=== PATIENT | male | born 1955 | race Caucasian/White ===

== ENCOUNTER 2016-07-01 17:33 | Inpatient (IN) | payer OTHER ==
[~2016-07-01] VITALS: Ht 177.8 cm; Wt 73.9 kg
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
--- NOTE | 2016-07-01 17:44 | NUR ---
PA STUDENT AT BEDSIDE FOR EVAL
--- NOTE | 2016-07-01 18:00 | NUR ---
RECTAL TEMP 103.1. DEVENDRA Cadet AT BEDSIDE FOR EVAL
[2016-07-01 18:16] LABS: ABSOLUTE BASOPHIL COUNT 0 /CUMM (0.0-0.2); ABSOLUTE EOSINOPHIL COUNT 0 /CUMM (0.0-0.7); ABSOLUTE GRANULOCYTE CT 12.5 /CUMM (1.4-6.5); ABSOLUTE LYMPH COUNT 1.9 /CUMM (1.2-3.4); ABSOLUTE MONOCYTE COUNT 2.5 /CUMM (0.10-0.60); BASOPHIL % 0 % (0.0-2.0); EOSINOPHIL % 0.1 % (0-5); MEAN CORPUSCULAR HGB 32.2 PG (27.0-31.0); MEAN CORPUSCULAR HGB CONC 33.3 G/DL (33.0-37.0); MEAN CORPUSCULAR VOLUME 96.8 FL (80.0-94.0); MEAN PLATELET VOLUME 9.4 FL (7.4-10.4); PLATELET COUNT 116 /CUMM (130-400); RBC DISTRIBUTION WIDTH 16.8 % (11.5-14.5); RED BLOOD CELL CT 2.69 /CUMM (4.70-6.10); WHITE BLOOD CELL COUNT 16.9 /CUMM (4.8-10.8)
--- NOTE | 2016-07-01 18:20 | NUR ---
BLOOD CULTURES X2 DRAWN AND SENT. HOSPITAL IV ESTBALISHED. PT CONFUSED, MOVING EXTREMITIES. UNABLE TO REDIRECT
[2016-07-01 18:23] LABS: GRANULOCYTE % 74.1 % (42.2-75.2)
[2016-07-01 18:30] LABS: PT 18.5 SEC (9.4-12.5); PTT 33 SEC (25-37)
--- NOTE | 2016-07-01 18:30 | NUR ---
MODERATE AMOUNT OF FORMED BLACK TARRY STOOL OUTPUT
--- NOTE | 2016-07-01 18:40 | NUR ---
VARGAS INSERTED. PT VERY AGITATED. PULLING AT IVS AND VARGAS. BILATERAL SOFT WRIST RESTRAINTS APPLIED PER DEVENDRA JEAN'S ORDER
--- NOTE | 2016-07-01 19:47 | CT SCAN REPORT ---
EXAMINATION: CT HEAD WITHOUT CONTRAST CT CERVICAL SPINE WITHOUT CONTRAST CLINICAL INFORMATION: Fall. Rule out fracture. COMPARISON: Head CT from 03/31/2016. TECHNIQUE: Contiguous axial imaging was performed from the skullbase to vertex without intravenous administration of contrast. Multidetector helical imaging was performed through the cervical spine. DLP: 1035.17 mGy-cm. FINDINGS: HEAD: There is no evidence of acute intracranial hemorrhage or territorial infarction. No abnormal mass effect or midline shift is seen. Lutz to white matter differentiation is well preserved. No extra-axial fluid collections are identified. There is a small area of linear calcification in the subcortical white matter of the left frontal lobe with adjacent low density change, also visible prior imaging. This may be due to a small developmental venous anomaly. The ventricles are normal in size. Brain parenchymal attenuation is normal. The osseous structures and soft tissues are normal. The mastoid air cells and visualized portions of the paranasal sinuses are well aerated. 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 CERVICAL SPINE: No acute fracture or dislocation is identified in the cervical spine. Significant multilevel disc space narrowing is noted with endplate ossification and Schmorl's nodes. There is ankylosis of the C2-C3 facet joint on the right side. Low The atlantoaxial articulation is normally maintained. The paraspinal soft tissues are normal. The lung apices are clear. IMPRESSION: 1. No acute intracranial pathology. 2. No evidence of acute cervical spine traumatic injury. Extensive cervical spondylosis.
--- NOTE | 2016-07-01 20:00 | NUR ---
PT TO AND FROM CT SCAN WITH THIS RN. PT REMAINS CONFUSED ABOUT SITUATION
--- NOTE | 2016-07-01 20:40 | CT SCAN REPORT ---
EXAMINATION: CT CHEST WITHOUT CONTRAST CT ABDOMEN/PELVIS WITHOUT CONTRAST CLINICAL INFORMATION: Fall 5 days ago. Fevers and altered sensorium. Evaluate for infection, trauma. COMPARISON: No relevant prior studies are available for comparison. TECHNIQUE: Multidetector volumetric CT imaging of the chest was done. Axial MIP volume rendering provided. Sagittal and coronal reformatted images were obtained. DLP: 955 mGy-cm. CHEST: LUNGS: No focal consolidation. Bilateral dependent atelectatic changes. A 5 mm calcification within the right lower lobe on series 3 image 29, consistent with a calcified granuloma. No additional pulmonary nodule or mass. MEDIASTINUM: No cardiomegaly. No mediastinal or perihilar lymphadenopathy. PLEURA: There is no pleural effusion or pneumothorax. No pleural mass or thickening. AXILLA: No lymphadenopathy. OSSEOUS STRUCTURES: Mild degenerative changes within the thoracic spine. No fracture. ABDOMEN/PELVIS: Evaluation of the intra-abdominal viscera is limited without IV contrast. PERITONEAL CAVITY: There is mild perihepatic and intra-abdominal ascites which measures approximately 5 Hounsfield units and is consistent with simple fluid. There is no intraperitoneal free air. LIVER, GALLBLADDER, AND BILIARY TREE: There is expansion and diffuse hypodensity of the right hepatic lobe with areas of central calcification. This area measures approximately 13.4 x 11.1 x 10.8 cm (AP x ML x CC). Evaluation is limited without intravenous contrast. These findings could represent a primary hepatic lesion such as hepatocellular carcinoma. An infectious process could also be considered in the appropriate clinical setting. Follow-up dedicated liver imaging with contrast or liver MRI could be considered if there are no contraindications. The gallbladder is poorly evaluated secondary to ascites and the lack of intravenous contrast, although the wall appears slightly thickened. No radiopaque stones are identified. Ultrasound could be considered if there is clinical concern for cholecystitis. There is no intrahepatic biliary ductal dilatation. PANCREAS: Poorly evaluated but grossly unremarkable. SPLEEN: Unremarkable. ADRENAL GLANDS: Unremarkable. KIDNEYS AND URETERS: The kidneys are normal in size, shape, and attenuation. No hydronephrosis, hydroureter, or calculi seen. BLADDER: Distended with a Casarez catheter in place. GASTROINTESTINAL TRACT: The stomach is distended with a large amount of intraluminal material, likely representing ingested food. There is no large or small bowel obstruction. There is stool within the colon. The appendix is not well visualized. ABDOMINAL WALL: No significant hernia is appreciated. LYMPH NODES: Poorly evaluated without intravenous contrast. VASCULAR: Scattered atherosclerotic calcifications within the abdominal aorta. No aortic dilatation. The IVC is collapsed. PELVIC VISCERA: The prostate and seminal vesicles are unremarkable. OSSEOUS STRUCTURES: Moderate to severe degenerative changes within the lumbar spine. No fracture. IMPRESSION: CHEST: 1. No focal consolidation. Bilateral dependent atelectatic changes. 2. No pleural effusion or pneumothorax. ABDOMEN/PELVIS: 1. Mild abdominal and perihepatic simple ascites. No intraperitoneal free air. 2. Heterogeneous, expansile lesion with central calcifications within the superior aspect of the right hepatic lobe. This could represent a primary hepatic lesion such as a hepatocellular carcinoma. An infectious process could also be considered in the appropriate clinical setting. Follow-up hepatic imaging such as CT with contrast or MRI could be considered if there are no contraindications. 3. Slight thickening of the gallbladder wall with adjacent ascites. No radiopaque cholelithiasis. Ultrasound could help further evaluate if clinically indicated. 4. Distention of the stomach. No large or small bowel obstruction. These findings were discussed with DEVENDRA Frederick via telephone at 6:17 PM on 07/01/2016.
--- NOTE | 2016-07-01 21:07 | NUR ---
PT BECAME AGITATED, CONTINUES TO BE DISORIENTED. BILATERAL WRIST RESTRAINTS REAPPLIED. PT'S GOWN CHANGED. ATTEMPTED TO REORIENT PT TO SITUATION.
--- NOTE | 2016-07-01 21:17 | NUR ---
PT MEDICATED WITH ATIVAN, CALMER, SLEEPING WHEN NOT AROUSED, HOUSE STAFF AT BEDSIDE, PT ALERT AND MAKING EYE CONTACT WITH HOUSE STAFF BUT NOT SPEAKING OR COOPERATIVE WITH EVAL. DR SHARIF ALSO AT BEDSIDE.
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
--- NOTE | 2016-07-01 22:05 | NUR ---
PHARMACY CALLED FOR ACYCLOVIR, NEEDS TO BE MIXED. HOUSE STAFF PAGED, INFORMED THAT PT HAS DEVELOPED DANGEROUS RESTLESSNESS AFTER THEIR EVAL AND BROKE OUT OF SOFT RESTRAINTS TWICE AND IS KICKING SIDERAILS AND STILL ABLE TO INFERFERE WITH TUBES/LINES DESPITE RESTRAINTS, HOUSE STAFF STATING THEY DO NOT WANT TO GIVE ADDITIONAL ATIVAN, WILL ORDER SOMETHING ELSE, AWAITING ORDERS
[2016-07-01 22:37] VITALS: BP 123/59
--- NOTE | 2016-07-01 22:45 | NUR ---
3 RNS UNABLE TO FIND NEUROVASCULAR ASSESSMENT, SILVA VIGOUROUSLY, 2+PULSES BILATERAL RADIAL AND PEDAL WITH BRISK CAP REFILL. HOUSE STAFF ASKED RE HIV CONSENT, DR SHARIF STATES CONSENT NOT NEEDED AND TO SEND WITHOUT IT.
--- NOTE | 2016-07-01 22:55 | NUR ---
REPORT CALLED TO RICH IN ICU
--- NOTE | 2016-07-01 23:21 | NUR ---
2 BAGS OF HERBAL SUPPLEMENTS BAGGED AND TAKEN TO PHARMACY.L
--- NOTE | 2016-07-01 23:51 | Admission Certification ---
Admission Certification Certification Statement - As attending physician, I certify that at the time of - admission, based on clinical presentation, severity of - symptoms, need for further diagnostic testing and - therapeutic interventions, and risk of adverse outcomes - without in-hospital treatment, in my clinical assessment, - this patient requires an acute hospital stay for a minimum - of two nights or longer. I have also considered psychsocial - factors such as support system, advanced age, financial - issues, cognitive issues, and failed out-patient treatments, - past re-admission history, safety of patient, and lack of - compliance as applicable. Specific rationale supporting this admission is: Acute toxic-metabolic encephalopathy, acute liver failure, acute blood loss anemia likely upper GI bleed, needs ICU level of care.
[2016-07-02] VITALS (7 sets, daily range): BP systolic 114–202; BP diastolic 52–92
[2016-07-02] MEDS ORDERED: CURCUMIN1 GM PO (01:57)
[2016-07-02] MEDS ORDERED: BROMELAIN PO (01:57)
[2016-07-02] MEDS ORDERED: GLUTATHIONE PO (01:58)
[2016-07-02] MEDS ORDERED: [UNRECOGNIZED DRUG - OTHER] PO (01:58)
[2016-07-02] MEDS ORDERED: [UNRECOGNIZED DRUG - OTHER] PO (01:59)
[2016-07-02] MEDS ORDERED: ASHWAGANDHA PO (02:00)
[2016-07-02] MEDS ORDERED: MILK THISTLE PO (02:00)
[2016-07-02] MEDS ORDERED: CINNAMON500 M1 PO (02:01)
[2016-07-02] MEDS ORDERED: [UNRECOGNIZED DRUG - OTHER] PO (02:01)
[2016-07-02] MEDS ORDERED: SELENIUM200 MCG PO (02:02)
[2016-07-02] MEDS ORDERED: [UNRECOGNIZED DRUG - OTHER] PO (02:03)
[2016-07-02] MEDS ORDERED: VITAMIN D1000 UNIT PO (02:03)
[2016-07-02] MEDS ORDERED: VITAMIN C500 M7 PO (02:03)
[2016-07-02] MEDS ORDERED: MAGNESIUM500 M2 PO (02:04)
[2016-07-02 06:54] LABS: ABSOLUTE BASOPHIL COUNT 0 /CUMM (0.0-0.2); ABSOLUTE EOSINOPHIL COUNT 0 /CUMM (0.0-0.7); ABSOLUTE GRANULOCYTE CT 14.1 /CUMM (1.4-6.5); ABSOLUTE LYMPH COUNT 1.2 /CUMM (1.2-3.4); ABSOLUTE MONOCYTE COUNT 1.6 /CUMM (0.10-0.60); BASOPHIL % 0 % (0.0-2.0); EOSINOPHIL % 0 % (0-5); GRANULOCYTE % 83.6 % (42.2-75.2); HEMATOCRIT 21.3 % (42-52); MEAN CORPUSCULAR HGB 32.5 PG (27.0-31.0); MEAN CORPUSCULAR HGB CONC 33.8 G/DL (33.0-37.0); MEAN CORPUSCULAR VOLUME 96.1 FL (80.0-94.0); MEAN PLATELET VOLUME 9.8 FL (7.4-10.4); PLATELET COUNT 101 /CUMM (130-400); RBC DISTRIBUTION WIDTH 17.1 % (11.5-14.5); RED BLOOD CELL CT 2.22 /CUMM (4.70-6.10); WHITE BLOOD CELL COUNT 16.9 /CUMM (4.8-10.8)
--- NOTE | 2016-07-02 08:16 | NUR ---
LATE ENTRY : PT RECEIVED FROM ER AGGITATED"LEAVE ME ALONE" TO NON VERBAL, SOFT RESTRAINTS TO WRISTS SITTER AT BEDSIDE. ASCENCIO BUT NOT TO COMMAND ALL PERIPHERAL PULSES DIMINISHED, SKIN INTACT. EXPELLS SOFT BLACK TARRY STOOL OB +, EXPECTORATES BLACK TINTED THICK BROWN SPUTUM, FREQUENT MOUTH CARE GIVEN. DISCUSSED WITH EXTENSION AGENT AND RESIDENT LACTULAOSE ENEMA DUE TO STOOL BEING OB + AND PT TOTALY UNCOOPERATIVE AND RESISTIVE TO CARE, NURSING LINE PRODUCER NOTIFIED, EXTRA ASSISTANCE FOR BEDSIDE PROCEEDURE OBTAINED.FECAL CONTAINMENT SYSTEM INSERTED, LACTULOSE ENEMA GIVEN ORDERED PT EXPELLED LG AMT BLACK TARRY STOOL, BLEW OUT FECAL RETENTION TUBE. TOLERATED PROCEEDURE WITH MINIMAL RESISTANCE. aT 3AM RECEIVED VISITOR, FRIEND, DIRECTED INQUIRIES TO EXTENSION AGENT, HOUSE STAFF UP TO SPEAK TO VISITOR. COT OBTAINED. IV PULLED OUT BY PT #20 STARTED IN RF WITH PIVO. B/W AND EKG DONE.
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
--- NOTE | 2016-07-02 09:33 | NUR ---
HR [address] DR[address] MACK [address] DR. TORRES IN ROOM AT TIME OF ADENOSINE ADM. PER DR. TORRES GIVE PATIENT ONLY 3MG 1ML OF ADENOSINE ;HR REMAINS AT 142
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
--- NOTE | 2016-07-02 11:34 | ULTRASOUND REPORT ---
EXAMINATION: US ABDOMEN LIMITED CLINICAL INFORMATION: Elevated liver function tests. COMPARISON: 07/01/2016 CT scan TECHNIQUE: Real-time imaging of the right upper quadrant abdominal viscera. Examination is limited due to patient's inability to follow breathing instructions FINDINGS: PANCREAS: Although partially obscured by overlying bowel gas visualized portions of the pancreas are unremarkable. LIVER: The liver is markedly abnormal with complex underlying heterogeneity and a large 9.2 x 9.6 x 8.6 cm mass lesion seen in the right lobe the liver, difficult to define further on this ultrasound. Dynamic MRI of the liver would be recommended to evaluate this further. I do not appreciate any obvious intrahepatic ductal dilatation. GALLBLADDER: Gallbladder is contracted and thick walled which is nonspecific in the setting of underlying ascites and hepatic disease. No definitive gallstones. Small amount of pericholecystic fluid is seen however this is difficult to assess for significance in the setting of ascites COMMON BILE DUCT: Normal in caliber measuring 0.4 cm in diameter. RIGHT KIDNEY: Normal. No hydronephrosis. No renal calculi or focal parenchymal lesions. The kidney measures 10.7 cm in maximum dimension. FREE FLUID: Small volumes of ascites seen. IMPRESSION: Large heterogeneous mass lesion seen in the right lobe the liver. Further evaluation with dynamic MRI would be recommended. No obvious gallstones, ductal dilatation, or common bile duct stones seen.
[2016-07-02] MEDS ORDERED: VANCOMYCIN1 GM/200 M IV (14:16)
--- NOTE | 2016-07-02 14:27 | RADIOLOGY REPORT ---
EXAMINATION: PORTABLE CHEST 1 VIEW CLINICAL INFORMATION: og tube placement. Per discussion with the patient's nurse, this is for endotracheal tube placement COMPARISON: 07/01/2016 CT scan. TECHNIQUE: Portable frontal view of the chest was obtained. FINDINGS: Endotracheal tube is now in place with the tip approximately 4 cm above the dale. There is mild elevation of the right hemidiaphragm with linear markings at the right base more suggestive of atelectasis. No superimposed focal infiltrate, effusion, edema, or pneumothorax. Cardiac and mediastinal silhouettes within normal limits for the technique. IMPRESSION: Endotracheal tube tip approximately 4 cm above the dale. Linear atelectasis at the right base with mild elevation of the right hemidiaphragm.
--- NOTE | 2016-07-02 14:31 | Event Note ---
Event Note Event Note: Patient was doing well hemodynamically stable this morning. However he suddenly vomited very large amount of blood with multiple clots and I was asked to see him at the bedside again. On exam he was having significant amount of hematemesis and immediately patient was intubated with the help of anesthesia for airway protection. Patient subsequently was aggressively resuscitated with intravenous fluids and PRBCs. FFP and platelets were ordered. As he was significantly tachycardic and hypotensive intravenous fluids were given and subsequently patient was sedated a triple-lumen catheter was inserted by me in the right groin as he had significant monitor blood and ongoing vomiting in the neck area. Aggressive resuscitation with fluids, adequate sedation with propofol, hypotension management with vasopressin was started as he was hypotensive and significantly tachycardic. Patient's blood pressure did improve. Subsequently he was started on somatostatin analog, broad-spectrum antibiotics for SBP prophylaxis, PRBCs, FFP. Urgent GI consult was asked and Dr. Salinas from GI did see the patient and plan is to do an immediate upper endoscopy. Surgery was also made aware for a possible sinks taken Yandy tube if he continues to exsanguinate. Impression Massive upper GI bleed probably related to acute variceal bleed in a gentleman with biopsy-proven hepatocellular carcinoma with a very large mass with cirrhosis with hepatitis C with liver dysfunction and liver failure Sepsis with gram-positive cocci in the blood with probable liver abscess as he recently had a biopsy Small amount of ascites not enough to be tapped rule out SBP Ongoing liver dysfunction and failure Significant hemorrhagic shock now on aggressive treatment PLAN Aggressive fluid resuscitation PRBC and every 2 hours C BC 4 units FFP Platelet transfusion We will reevaluate his blood work again Intravenous somatostatin analog Intravenous proton pump inhibitor Vasopressin for blood pressure management as he is significantly tachycardic Levo fed if he continues to be hypotensive GI and surgery is already aware Patient might need TIPS procedure and multiple attempts were made to contact interventional radiology and the suite not be available patient may need to be transferred to a higher level of care facility for an urgent TIPS procedure. GI attending aware and present at the bedside Discussed with friends and I also discussed with patient's son from [place]. Patient's son who is the next of kin wishes to continue all aggressive measures however he wants to make his father DNR if he does have significant cardiopulmonary arrest and he does not wish any chest compressions. An additional 90 minutes was spent with the patient at the bedside.
--- NOTE | 2016-07-02 14:36 | Cons- Gastroenterology ---
General Information and HPI Consulting Request Date of Consult: 07/02/16 Requested By: CHANTE MARIN,SITALAKSHMI Reason for Consult: Abnormal LFTs Source of Information: old records Exam Limitations: unable to give history History of Present Illness: Patient is a 61 year old male who was brought to the hospital by a friend because of mental status changes. Patient is completely altered and lethargic and thus unable to participate in history. Person to notify, Roxane Blake, was contacted to obtain history of present illness. Roxane reports that Buzz was in his normal state of health until five days ago when he was walking in his driveway, fell on black ice, and hit both his head and buttocks. He did not seek medical attention and was well until two days later when he became lethargic and bed-bound due to generalized malaise. Beginning yesterday, Roxane noticed that Mr. Valencia was confused, slightly unsure of his surroundings, possibly febrile and had dark urine. Today, he was even more confused, disoriented and unable to perform his ADLs, causing her to bring him to the emergency room. Roxane reports patient does not use alcohol, tobacco or illicit drugs. He does frequently go to [facility] for health cleanses, including new medications, herbal mixes and coffee enemas, the most recent being in March of 2016 where he also had the placement of new tatoos. During this last visit in March, patient visited a local doctor who diagnosed him with cirrhosis and stage 2 carcinoma via a biopsy. Patient decided to puruse herbal remedies as a treatment course for this cancer. The herbal medicines he currently takes are: Curcumin, Bromelain, Reduced Glutathione, hepatotone, TriEase Seasonal softgels, Milk Thistle, EnerGold, Ashwagandha, coenzyme B, cinnamon, selenium, super vision, vitamin C, vitamin D and magnesium optimizer. 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 He again does not use alcohol, illicit drugs or tobacco products. Roxane denies any prior surgeries and is unsure of family history. From his brother history was obtained that Mr. Valencia was diagnosed in the last 6-9 months with hepatitis C. As far as his brother knows Mr. Valencia did not receive any conventional treatments for his hepatitis C. Allergies/Medications Allergies: Coded Allergies: No Known Allergies (07/01/16) Home Med List: Ascorbic Acid (Vitamin C) 500 MG CAPSULE.ER 1 CAP PO DAILY SUPPLEMENT ( Reported) [ASHWAGANDHA] 1 TBSP LIQ 1 TBSP PO DAILY HCC (Reported) Bromelains (Bromelain) 25 GM POWDER 1 CAP PO DAILY HCC (Reported) Cholecalciferol (Vitamin D3) (Vitamin D) 1,000 UNIT TABLET 1 TAB PO DAILY SUPPLEMENT (Reported) Cinnamon Bark (Cinnamon) 500 MG CAPSULE 1 CAP PO DAILY HCC (Reported) [COENZYME B] 1 CAP 1 CAP PO DAILY HCC (Reported) Glutathione (Glutathione-L) 100 % POWDER 1 CAP PO DAILY HCC (Reported) [HEPATOTONE] 1 CAP CAP 1 CAP PO DAILY HCC (Reported) Magnesium Oxide (Magnesium) 500 MG CAPSULE 1 CAP PO BID SUPPLEMENT (Reported) [MILK THISTLE] 240 MG CAP 1 CAP PO DAILY HCC (Reported) Selenium 200 MCG CAPSULE 1 CAP PO DAILY HCC (Reported) [SUPERVISION] 1 CAP CAP 1 CAP PO DAILY EYE CARE (Reported) [TRIEASE] 1 CAP CAP 1 CAP PO DAILY HCC (Reported) Turmeric (Curcumin) 95 % POWDER 1 CAP PO DAILY HCC (Reported) Past History Travel History Traveled to [place] past 21 day No Medical History Neurological: UNOBTAINABLE EENT: UNOBTAINABLE Cardiovascular: UNOBTAINABLE Respiratory: UNOBTAINABLE Gastrointestinal: UNOBTAINABLE Hepatic: hepatitis C, liver cancer? Renal: UNOBTAINABLE Musculoskeletal: UNOBTAINABLE Psychiatric: UNOBTAINABLE Endocrine: UNOBTAINABLE Cancer(s): liver cancer? Surgical History Surgical History: non-contributory Psychosocial History Where Do You Live? Home Who Do You Live With? Friend Services at Home: None Primary Language: Bahraini Smoking Status: Never Smoked ETOH Use: denies use Illicit Drug Use: denies illicit drug use Living Will? no Functional Ability ADLs Independent: dressing, eating, toileting, bathing. Ambulation: independent IADLs Independent: shopping, housework, finances, food prep, telephone, transportation , medication admin. 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 Review of Systems Review of Systems: Patient is intubated and unresponsive. Exam & Diagnostic Data Vital Signs and I&O Patient is in an ICU bed in restraints intubated with the right femoral central line. There is no palmar erythema. Mild peripheral edema abdomen is soft no clinical ascites. Just firm. Spider angiomata. Stents of tattooing of the upper body. Heart sounds S1 and S2. Respiratory sounds and good air entry with additional sounds from ventilator. Vital Signs Date Time Temp Pulse Resp B/P Pulse O2 O2 Flow FiO2 Ox Delivery Rate 07/02 1358 50 07/02 0600 98.8 125 24 114/59 07/02 0400 99.6 125 20 121/52 07/02 0400 100 07/02 0200 99.9 119 18 127/59 07/02 0000 99.2 102 24 123/57 07/02 0000 93 07/02 0000 99.2 102 18 123/57 93 Room Air 07/01 2236 97.9 65 18 123/59 07/019 97.9 103 18 123/59 97 Room Air 07/01 2143 98.0 102 20 118/61 96 Room Air 07/013 87 119/67 07/02 2055 104 117/63 07/01 2012 107 16 122/63 95 Room Air 07/01 1950 101.3 07/01 1937 101.3 106 18 120/57 96 Room Air 07/01 1931 105 18 120/57 96 Room Air 07/01 1853 103.1 07/01 1830 114 16 116/57 96 Room Air 07/01 1759 103.1 112 20 135/76 97 Room Air 07/01 1735 Room Air 07/01 1735 100.1 118 20 96 Room Air Intake & Output 07/02 1600 07/02 0400 07/01 1600 07/01 0400 06/30 1600 06/30 0400 Intake Total 1550 3250 Output Total 455 575 Balance 1095 2675 Intake, IV 1550 3250 Number 2 Bowel Movements Output, Urine 455 575 Patient 163 lb Weight Physical Exam: n Assessment/Plan Assessment/Recommendations: Next raissa Valencia's is a 61-year-old gentleman who almost certainly has cirrhosis and a large approximately 10 cm HCC with some features of calcification. He doesn't have any clear evidence of portal hypertension on imaging. Specifically his spleen was not large and collaterals were not reported when I reviewed the CT scan with the radiologist this afternoon. There is mild to moderate ascites on the CT scan of this is not clinically evident. Patient has clearly developed an upper GI bleed in the last 60-90 minutes. Issues. 1. Upper GI bleed will treat as variceal until proven otherwise. Octreotide and broad-spectrum antibiotic coverage. Patient is already being transfused. Has been intubated. We will be undertaking an upper GI endoscopy imminently with likely variceal banding. This has been discussed with his brother over the phone and the indications alternatives and complications have been reviewed. Patient has a son in [place] who has been asked to call in to the hospital to also review the current serious nature of this to Valencia's condition. 2. Mental status is a secondary issue at present as the patient is intubated and propofol. 3. Resuscitation is actively being undertaken with packed red blood cells and FFP. 4. Patient is broadly covered with vancomycin and ceftriaxone 5. After variceal banding please repeat CBC, INR, LFTs. Once patient stabilizes we should attempt to obtain liver biopsy from [facility] so it can be reviewed. Will also require a multiphasic MRI to better characterize the liver lesion. 4 HCV viral titers. Consult Acknowledgment - Thank you for your consult request.
[2016-07-02] MEDS ORDERED: OCTREOTIDE500 MCG/2 IV (15:02)
--- NOTE | 2016-07-02 15:33 | Discharge Summary ---
See Addendum Visit Information Visit Dates Admission Date: 07/01/16 Discharge Date: 07/02/16 Hospital Course Course Attending Physician: CHANTE MARIN,[facility] Primary Care Physician: ELAINA MARIN,[facility] Course: Patient is a 61 year old male who was brought to the hospital by a female friend because of mental status changes. Patient is completely altered and lethargic and thus unable to participate in history. Person to notify, Roxane Blake, was contacted to obtain history of present illness. Roxane reports that Buzz was in his normal state of health until five days ago when he was walking in his driveway, fell on black ice, and hit both his head and buttocks. He did not seek medical attention and was well until two days later when he became lethargic and bed-bound due to generalized malaise. Beginning yesterday, Roxane noticed that Mr. Valencia was confused, slightly unsure of his surroundings, possibly febrile and had dark urine. Yesterday, he was even more confused, disoriented and unable to perform his ADLs, causing her to bring him to the emergency room. Roxane reports patient does not use alcohol, tobacco or illicit drugs. He does frequently go to [place] for health cleanses, including new medications, herbal mixes and coffee enemas, the most recent being in March of 2016 where he also had the placement of new tatoos. During this last visit in March, patient visited a local doctor who diagnosed him with cirrhosis and stage 2 carcinoma via a biopsy. Patient decided to pursue herbal remedies as a treatment course for this cancer. The herbal medicines he currently takes are: Curcumin, Bromelain, Reduced Glutathione, hepatotone, TriEase Seasonal softgels, Milk Thistle, EnerGold, Ashwagandha, coenzyme B, cinnamon, selenium, super vision, vitamin C, vitamin D and magnesium optimizer. 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 He again does not use alcohol, illicit drugs or tobacco products. Roxane denies any prior surgeries and is unsure of family history. From his brother history was obtained that Mr. Valencia was diagnosed in the last 6-9 months with hepatitis C. As far as his brother knows Mr. Valencia did not receive any conventional treatments for his hepatitis C. Mr Elaine Valencia (brother) can be reached at [phone]. Hospital Course in ICU Patient was doing well hemodynamically stable this morning. However he suddenly vomited very large amount of blood with multiple clots. On exam he was having significant amount of hematemesis and immediately patient was intubated with the help of anesthesia for airway protection. Patient subsequently was aggressively resuscitated with intravenous fluids and PRBCs. FFP and platelets were ordered. As he was significantly tachycardic and hypotensive intravenous fluids were given and subsequently patient was sedated a triple-lumen catheter was inserted in the right groin as he had significant monitor blood and ongoing vomiting in the neck area. Aggressive resuscitation with fluids, adequate sedation with propofol, hypotension management with vasopressin was started as he was hypotensive and significantly tachycardic. Patient's blood pressure did improve. Subsequently he was started on somatostatin analog, broad-spectrum antibiotics for SBP prophylaxis, PRBCs, FFP. Urgent GI consult was asked and Dr. Antoine from GI did see the patient. Impression 1. Massive upper GI bleed probably related to acute variceal bleed in a gentleman with biopsy-proven hepatocellular carcinoma with a very large mass with cirrhosis with hepatitis C with liver dysfunction and liver failure 2. Sepsis with gram-positive cocci in the blood with probable liver abscess as he recently had a biopsy 3. Small amount of ascites not enough to be tapped rule out SBP 4. Ongoing liver dysfunction and failure 5. Significant hemorrhagic shock now on aggressive treatment His labs this morning WbC count 16.9, hemoglobin 7.2, platelet 101, Sodium 128, lactic acid 11.4 from 5.7, ferritin greater than 10,000, total bilirubin 2.6, direct bilirubin 1.8, AST 1272, ALT 507, lactate dehydrogenase 8525, creatinine kinase 35, INR 1.77 Imaging done in hospital CAT scan abdomen and pelvis without contrast and CAT scan chest without contrast 1. Mild abdominal and perihepatic simple ascites. No intraperitoneal free air. 2. Heterogeneous, expansile lesion with central calcifications within the superior aspect of the right hepatic lobe. This could represent a primary hepatic lesion such as a hepatocellular carcinoma. An infectious process could also be considered in the appropriate clinical setting. Follow-up hepatic imaging such as CT with contrast or MRI could be considered if there are no contraindications. 3. Slight thickening of the gallbladder wall with adjacent ascites. No radiopaque cholelithiasis. Ultrasound could help further evaluate if clinically indicated. 4. Distention of the stomach. No large or small bowel obstruction. CT CERV SPINE WO IV CONTRAST; CT HEAD WO IV CONTRAST 1. No acute intracranial pathology. 2. No evidence of acute cervical spine traumatic injury. Extensive cervical spondylosis. Abdomen ultrasound Large heterogeneous mass lesion seen in the right lobe the liver. Further evaluation with dynamic MRI would be recommended. No obvious gallstones, ductal dilatation, or common bile duct stones seen. Chest x-ray post intubation Endotracheal tube tip approximately 4 cm above the dale. Linear atelectasis at the right base with mild elevation of the right hemidiaphragm. 1. Altered mental status secondary to acute metabolic encephalopathy Patient has underlying liver disease hepatitis C (RNA [id number], genotype 1a) and hepatocellular carcinoma confirmed by biopsy done in [place] in March. ( Records available in [place]). Patient came in with a fever of 103, the source of infection is unknown it could be an underlying liver abscess versus acute cholecystitis. Id consult was obtained and his antibiotics were narrowed. Patient might need TIPS procedure. Patient is being transferred to a higher level of care facility for an urgent TIPS procedure. 2. SIRS with leukocytosis, fever and tachycardia Patient had been persistently tachycardic, there is no clear source of infection. No pneumonia or UTI. No evidence of acute cholecystitis on right upper quadrant ultrasound. His cultures were positive for gram-positive cocci. Patient is covered with broad-spectrum antibiotics including vancomycin and ceftriaxone. It is unlikely that patient has underlying viral encephalitis therefore Acylclovir has been discontinued after discussion with infectious disease. 3. Acute blood loss anemia Patient has been having black loose stools which are guaiac positive. Patient also had one episode of hemoptysis. Probably patient has underlying esophageal varices. Gastroenterology consult service on board> Patient had endoscopy done which was significant for variceal bleed which was banded. He is started on octreotide drip after an upper stride bolus of 50 MCG. Patient got 2 units of blood in the morning, will transfuse him another 3 Will keep hemoglobin greater than 7. CBC is done every 2 hours. 4. Thrombocytopenia Probably due to impaired synthetic function of liver, elevated LDH in the setting of liver failure. He will be transfused 5 units of platelets and 4 units of FFP. 5. Hyponatremia 128 this morning, patient appears hypovolemic. Please continue to monitor NA levels 6. Agonal breathing Patient has been having agonal breathing since morning, patient vomited a large amount of blood with clots, she has been intubated to maintain his airway. He is on propofol for sedation 7. Hypotension Patient has been very hypotensive today his blood pressure has been 87/58, initially he was started on vasopressin also known to be beneficial for variceal bleed (later d/cd). However he failed to sustain his pressure and he's been started on levophed after getting a central line in the right femoral vein. 8. Lactic acidosis Patient came in a lactic acid of 5.6 however this morning at 11.4, will continue to trend Patient has lactic acidosis probably due to an underlying liver disease Discussed with friends and I also discussed with patient's son from [place], Alice valencia ). Patient's son who is the next of kin wishes to continue all aggressive measures however he wants to make his father DNR if he does have significant cardiopulmonary arrest and he does not wish any chest compressions. Allergies: Coded Allergies: No Known Allergies (07/01/16) Disposition Summary Disposition Principal Diagnosis: 1. Significant sepsis due to gram-positive cocci in the blood 2.Altered mental status probably related to worsening liver function with sepsis. 3.Significant ascites and decompensated liver disease in the CT suggestive of advanced liver disease 4. Persistent lactic acidosis without significant anion gap probably related to liver dysfunction with sepsis playing a role. Patient is also taking multiple nutritional supplements which may have compounded this issue 5. Significantly elevated ferritin patient may have a component of hemochromatosis 6. Significant anemia with heme positive stools 7. Significantly tachycardic 8. Acute blood loss anemia lower GI and large volume hemptysis 9. Hyponatremia, probably related to advanced liver disease and dehydration Additional Diagnosis: as above Discharge Disposition: other general hospital Discharge Instructions General Discharge Information Code Status: Do Not Resucitate Patient's Diet: npo Patient's Activity: sedated on propafol Follow-Up Instructions/Appts: patient is being transfered to [facility] for further care Medications at Discharge Discharge Medications: Stop taking the following medications: Turmeric (Curcumin) 95 % POWDER ORAL DAILY Bromelains (Bromelain) 25 GM POWDER ORAL DAILY Glutathione (Glutathione-L) 100 % POWDER ORAL DAILY [HEPATOTONE] 1 CAP CAP ORAL DAILY [TRIEASE] 1 CAP CAP ORAL DAILY [MILK THISTLE] 240 MG CAP ORAL DAILY [ASHWAGANDHA] 1 TBSP LIQ ORAL DAILY [COENZYME B] 1 CAP ORAL DAILY Cinnamon Bark (Cinnamon) 500 MG CAPSULE ORAL DAILY Selenium (Selenium) 200 MCG CAPSULE ORAL DAILY [SUPERVISION] 1 CAP CAP ORAL DAILY Ascorbic Acid (Vitamin C) 500 MG CAPSULE.ER ORAL DAILY Magnesium Oxide (Magnesium) 500 MG CAPSULE ORAL TWICE DAILY Continue taking these medications: Cholecalciferol (Vitamin D3) (Vitamin D) 1,000 UNIT TABLET 1 Tablet ORAL DAILY Start taking the following new medications: Ceftriaxone Sodium (Ceftriaxone) 2 GRAM VIAL 2,000 Milligram INTRAVEN DAILY Qty = 1 No Refills Pantoprazole Sodium (Protonix) 40 MG TABLET.DR 40 Milligram INTRAVEN TWICE DAILY Qty = 1 No Refills Vancomycin HCl/D5w (Vancomycin HCl 1g/200 Ml Bag) 1 GRAM/200 ML FROZ.PIGGY 1,000 Milligram INTRAVEN EVERY 12 HOURS Qty = 1 No Refills Octreotide Acetate (Octreotide Acetate) 500 MCG/ML VIAL 50 Microgram INTRAVEN EVERY 10 HOURS Qty = 1 No Refills [PROPOFOL ] BAG 1,000 Milligram INTRAVEN EVERY 24 HOURS No Refills Instructions: PROPOFOL DRIP 100 MG IN 100 ML Q24, TITRATED PER PROTOCOL OF INITIAL DOSE 5MCG/KG/MIN OVER 5 MINUTES IV DRIP @ 5 MCG/KG/MINUTE TITRATE TO SAS SCORE OF 3-4 INCREASE BY 5 MCG/KG/MINUTE NOT MORE FREQUENTLY THAN EVERY 15 MINUTES NOT TO EXCEED 50 MCG /KG/MIN DECREASE BY 5 MCG/KG/MIN NOT MORE FREQUENTLY THAN EVERY 15 MIN UNTILL PATIENT AT SAS GOAL DOCUMENT SAS EVERY HOUR AND PRN DURING TITRATION CALL MD FOR SAS OF 1-2 OR 6-7 Copies To: ABIGAIL MACK MD; BIB ANTOINE MD; CELESTE OLIVA MD Instructions: NOREPINEPHRINE DRIP 4 MG IV IN NS 250 ML, Q24 TITRATE TITRATION PROTOCOL IV DRIP @ 5 MCG/MIN TITRATE TO SBP GREATER THAN 90 mmHg INCREASE BY 2 MCG/MINUTE EVERY 5 MINUTES NOT TO EXCEED 20 MCG/MINUTE Copies To: ABIGAIL MACK MD; BIB ANTOINE MD; CELESTE OLIVA MD Copies To: MARTINA MARIN,ABIGAIL Jensen; ELINA MARIN,BIB; PJ MARIN,CELESTE
--- NOTE | 2016-07-02 15:46 | Proc Note Endoscopy ---
Endoscopy Procedure Medical History: unchanged Procedure Date: 07/02/16 Spray Painter Helper: JAVIER SHARIF MD ASA Classification: III Indications: Patient with cirrhosis and acute upper GI bleed Instrument: diagnostic gastroscope Patient's Tolerance: fair Complications: none Extent Reached: second part of duodenum Procedure: Patient was in the ICU intubated and sedated with propofol. Patient is clearly having an upper GI bleed and has a history of cirrhosis and likely portal hypertension. The Olympus upper endoscope was passed without difficulty into the upper esophagus and then maneuvered into D2. Was a large amount of blood in the esophagus which could be cleared by suction. The stomach had also a large amount of blood and very large clots. This could not be entirely cleared. Scope was passed into the duodenum and this was relatively clear. Duodenal mucosa was seen through the bulb all the way through to D2. There were no mucosal lesions in the duodenum. The portion of the stomach that was seen which is predominantly the lesser curvature and the antrum also did not have any mucosal lesions. Retroflexion in the stomach did not allow a careful evaluation for gastric varices due to overlying clot. The scope was withdrawn proximal to the GE junction at which point a single varix which was grade 1-2 was seen. There were no clear stigmata of recent or ongoing bleed from this varix. The rest of the esophageal mucosa was not abnormal. The scope was withdrawn and a esophageal banding device was placed on the scope in the usual manner. One band was deployed as the test successfully. The scope was then reintroduced and a band was deployed on the varix did not take. A further band was deployed and distended result in a stable band placement on the varix. It was no bleeding due to placement of the band. The scope was withdrawn at this point. Findings: Large upper GI bleed likely esophageal variceal bleed. Single varix seen which was banded Impression: Upper GI bleed likely from an esophageal varix. A single band placed. Recommendations: Please see patient's notes for extensive recommendations
[2016-07-02] MEDS ORDERED: PROPOFOL IV (15:59)
--- NOTE | 2016-07-02 16:05 | Patient Discharge Instructions ---
Discharge Instructions General Discharge Information Special Instructions: TRANSFERED TO [facility] FOR [facility]THER [facility] Acute Coronary Syndrome Inclusion Criteria At DC or during hospital stay patient has or had the following: ACS DIAGNOSIS No Discharge Core Measures Meds if any: Prescribed or Continued at Discharge Meds if any: NOT Prescribed or Continued at Discharge Congestive Heart Failure Inclusion Criteria At DC or during hospital stay patient has or had the following: CHF DIAGNOSIS No Discharge Core Measures Meds if any: Prescribed or Continued at Discharge Meds if any: NOT Prescribed or Continued at Discharge Cerebrovascular accident Inclusion Criteria At DC or during hospital stay patient has or had the following: CVA/TIA Diagnosis No Discharge Core Measures Meds if any: Prescribed or Continued at Discharge Meds if any: NOT Prescribed or Continued at Discharge Venous thromboembolism Inclusion Criteria VTE Diagnosis No VTE Type NONE VTE Confirmed by (Test) NONE Discharge Core Measures - Per Current guidelines, there needs to be overlap - treatment for the first 5 days of Warfarin therapy. - If discharged on Warfarin prior to 5 days of - overlap therapy, the patient will need to be - assessed for post discharge needs including - *Post discharge parental anticoagulation - *Warfarin and/or parental anticoagulation education - *Follow up date to check INR post discharge At least 5 days overlap therapy as Inpatient No Meds if any: Prescribed or Continued at Discharge Note: Overlap Therapy is Warfarin and Anticoagulant Meds if any: NOT Prescribed or Continued at Discharge
[2016-07-02 17:28] LABS: ABSOLUTE BASOPHIL COUNT 0 /CUMM (0.0-0.2); ABSOLUTE EOSINOPHIL COUNT 0 /CUMM (0.0-0.7); ABSOLUTE MONOCYTE COUNT 0.4 /CUMM (0.10-0.60)
[2016-07-02 17:36] LABS: ABSOLUTE GRANULOCYTE CT 8.1 /CUMM (1.4-6.5); ABSOLUTE LYMPH COUNT 1.1 /CUMM (1.2-3.4); BASOPHIL % 0.2 % (0.0-2.0); EOSINOPHIL % 0.2 % (0-5); GRANULOCYTE % 84.3 % (42.2-75.2); MEAN CORPUSCULAR HGB CONC 33.5 G/DL (33.0-37.0); MEAN PLATELET VOLUME 8.9 FL (7.4-10.4); PLATELET COUNT 78 /CUMM (130-400); RBC DISTRIBUTION WIDTH 15.3 % (11.5-14.5); WHITE BLOOD CELL COUNT 9.6 /CUMM (4.8-10.8)
[2016-07-02 17:38] LABS: PT 18.4 SEC (9.4-12.5)
[2016-07-02 17:41] LABS: MEAN CORPUSCULAR VOLUME 89.5 FL (80.0-94.0); RED BLOOD CELL CT 3.68 /CUMM (4.70-6.10)
--- NOTE | 2016-07-02 19:04 | NUR ---
7AM-3PM SHIFT NOTE [address] Camila MENDOZA AND DR. Samm PAREKH H/H 7.2/21.3, ST HR 140-150'S, LABORED BREATHING, BP 152/78; 0800; STUPEROUS, NOT MAKING EYE CONTACT, NON-VERBAL, NOT FOLLOWING COMMANDS, ASCENCIO, B/L SOFT WRIST REST., 1:1 SITTER, ST HR 136 BP 120/66, EKG DONE AT [address] FORD PATIENT IS IN SVT,(SEE PREVIOUS NOTE FOR DRUG ADM.),NO ECTOPY NOTED, ECHO DONE AT 1120, RA, O2 SAT 96% CLEAR LUNGS,LABORED BREATHING, INC. CARE PROVIDED FOR A BLACK TARRY GUIAC POSITIVE STOOL, POSITIVE B.S, ABD. U/S AT 1010,NPO, VARGAS INTACT, LOW U/O REPORTED TO 'Eyal, JAUNDICE INTACT SKIN, MULTIPLE TATOOS ON CHEST AND ARMS, ALPS ON PT, N/S MAINTAINED AT 150 MLS/HR, BLOOD CULTURES SENT, 1030: 1ST OF 2 UNITS OF PRBC ORDERED HUNG 1230;AGONAL BREATHING NOTED, 2L NC ADM., O2 SAT 98%,HR 138, BP 110/70, REPORTED CHANGE IN BREATHING TO , R.T. PAGED 12;35;PATIENT VOMITED LARGE AMOUNTS OF BRIGHT RED BLOOD W/ CLOTS ALONG WITH A BLACK TARRY STOOL, ANESTHESIA PAGED, PATIENT CONTINUED TO BLEED UNTIL 1245 AT TIME OF INTUBATION; # 8 AT RIGHT LIP, 24CM AT LIP, AC/28,500,50%, O2 SAT 98%, HR 168, BP 56/47 VASOPRESSIN 0.04 UNITS/MIN STARTED AT THIS TIME, (VASOPRESSIN DC'ED AT 1515 BP 156/87), 2ND UNIT PRBC UP, DR. MACK UNDER A STERILE FIELD INSERTED A RIGHT GROIN TLC, CVP 10, PROPOFOL STARTED AT 1400, 1500;ENDOSCOPY DONE AT BEDSIDE BY DR. ANTOINE TOTAL OF 5 UNITS PRBC, 1 FFP, GIVEN BETWEEN [id number]
[2016-07-02] MEDS ORDERED: CEFTRIAXONE2 G2 IV (20:22)
[2016-07-02] MEDS ORDERED: PROTONIX40 M3 IV (20:25)
[2016-07-02 20:36] LABS: ABSOLUTE BASOPHIL COUNT 0 /CUMM (0.0-0.2); ABSOLUTE EOSINOPHIL COUNT 0 /CUMM (0.0-0.7); BASOPHIL % 0.1 % (0.0-2.0); EOSINOPHIL % 0.2 % (0-5); MEAN PLATELET VOLUME 8.8 FL (7.4-10.4)
[2016-07-02 20:38] LABS: PT 18.4 SEC (9.4-12.5)
[2016-07-02 20:46] LABS: ABSOLUTE LYMPH COUNT 1.5 /CUMM (1.2-3.4); ABSOLUTE MONOCYTE COUNT 1.3 /CUMM (0.10-0.60); GRANULOCYTE % 80.8 % (42.2-75.2); HEMATOCRIT 35.9 % (42-52); MEAN CORPUSCULAR HGB CONC 33.9 G/DL (33.0-37.0); MEAN CORPUSCULAR VOLUME 88.5 FL (80.0-94.0); PLATELET COUNT 76 /CUMM (130-400); RBC DISTRIBUTION WIDTH 15.4 % (11.5-14.5); RED BLOOD CELL CT 4.06 /CUMM (4.70-6.10)
[2016-07-02 20:47] LABS: WHITE BLOOD CELL COUNT 14.9 /CUMM (4.8-10.8)
--- NOTE | 2016-07-02 22:33 | NUR ---
Received patient at 1500. Endoscopy being performed at the bedside by Dr. Salinas. One bleeding varice was found and banded. Patient is restless. SAS 4-5. propfol gtt running at 15 mcg/kg/min through #20 to the RH and titrated accordingly per emar. Patient's pupils are 4mm and reactive. 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 NSR-ST on the monitor 90s-100s, DZH=010g-772q. Vasopressin no longer running. D5-NS running at 125 mls/hr (x2 bags) through Pre[facility]osp #16 IV to the LAC placed 07/01. Octreotide gtt started at 25 mcg/or or 25 mls/hr through Right Groin TLC along with 1/4 units of FFP and 5/6 units of PRBC's currently running. Patient is orally intubated w/ #8 to the right at 24 cm and mechanically ventilated AC-28, TV-500, FIO2 40%, peep of 5. O2 sat 100% and lungs clear upon auscultation throughout. Deep suctioned for scant dark bloody and orally suctioned for large bloody post endoscopy. Abdomen is distended/soft, +BS. Casarez in place and output is picking up, clear yellow. Scattered tattoos/jaundiced skin noted. 185: Patient projectile vomited mod-large amount of dark black/red blood and blood pressure elevated to SBP-200s. Dr. Grimaldo aware. 5mg IV labetalol per MD given and improved to sbp:150s-160s. Bed assignment recieved. Report given to INOCENCIA Salomon and INOCENCIA Millan regarding patient coming over. 2014: Patient had additional episode of vomiting blood. Dr. Grimaldo aware. O2 sats difficult to maintain at this time. Reading 86%. Placed on 100% fio2 per RT Mi w/ better readings. Noted patient's pupils to still be 4mm and reactive. R legs slowly turning into body over the last couple hours. Dr. Houston and Dr. Mccollum in to assess patient before discharge. Okay'd transfer to continue. INOCENCIA Millan updated/notified. Blood work drawn before transfer. 2100: Patient sent to [facility] w/ INOCENCIA Serra and four IV pumps. Belongings/meds attained from pharmacy and given to family/friend.
--- NOTE | 2016-07-03 01:24 | NUR ---
LATE ENTRY: PT UNRESPONSIVE VOMITING BROWN LIQUID OB+, INTUBATED ON RESPIRATOR,ON 100% SUCTIONED BLOOD TINGED SPUTUM, TEMP 103, DECERIBRIT POSTURING OF LOWER EXTREMITIES SEEN BY DR LOPEZ, ICE PACKS TO GROIN AND AXILLA FOR FEVER, FRIENDS AT BEDSIDE SEEN BY FORKLIFT DRIVER, TRANSFERED BY AMBULANCE WITH VENTILATOR, MONITOR AND NURSE TO [facility] W/O INCIDENT AT 2100.
--- NOTE | 2016-07-03 10:25 | ECHOCARDIOGRAM REPORT ---
JUAN TAYLOR Age: 61 : 1955 Gender: M Exam Date: 07/02/2016 11:08 Exam Location: [facility] Ht (in): 70 Wt (lb): 163 BSA: 1.91 BP: 114 / 59 Ordering Physician: YESI MENDOZA MD Referring Physician: YESI MENDOZA MD Technologist: Anna Turcios RIOS Room Number: 105 Indications: INFECTIVE ENDOCARDITIS Rhythm: sinus tachycardia Technical Quality: fair FINDINGS Left Ventricle Normal left ventricular size, wall thickness and systolic function with no obvious regional wall motion abnormalities. Normal left ventricular diastolic filling pattern for age. The ejection fraction is visually estimated at 90 %. Right Ventricle The right ventricle is normal in size and function. Right Atrium The right atrium is normal in size. Left Atrium The left atrium is normal in size. The interatrial septum is intact. Mitral Valve The mitral valve is normal in structure and function. There is trace mitral regurgitation. Aortic Valve Structurally normal aortic valve without significant sclerosis or stenosis. There is no aortic regurgitation. Tricuspid Valve The tricuspid valve is normal in structure and function. There is trace tricuspid regurgitation. Pulmonary artery systolic pressure is normal. Pulmonic Valve Structurally normal pulmonic valve. There is no pulmonic regurgitation. Pericardium Normal pericardium with trace effusion. No pleural effusion. Great Vessels Normal aortic root dimension. The aortic arch and great vessels are well seen and are normal. CONCLUSIONS 1. Hyperdynamic EF of 90%. 2. Trace mitral regurgitation. 3. Trace tricuspid regurgitation. 4. No valvular vegetation identified. Obtain a BAILEY if high clinical suspicion. 5. Trace pericardial effusion. Guy Lozano M.D. (Electronically Signed) Final Date: 03 July 2016 10:24 MEASUREMENTS (Male / Female) Normal Values 2D ECHO LV Diastolic Diameter PLAX 4.6 cm 4.2 - 5.9 / 3.9 - 5.3 cm LV Systolic Diameter PLAX 1.6 cm 2.1 - 4.0 cm LV Fractional Shortening PLAX 66.5 % 25 - 46 % LV Ejection Fraction 2D Teich 93.3 % IVS Diastolic Thickness 0.9 cm LVPW Diastolic Thickness 1.1 cm LV Relative Wall Thickness 0.4 RV Internal Dim ED PLAX 1.9 cm 1.9 - 3.8 cm LVOT Diameter 2.1 cm Aortic Root Diameter 2.8 cm LA Systolic Diameter LX 2.7 cm 3.0 - 4.0 / 2.7 - 3.8 cm Ascending Aorta Diameter 3.2 cm DOPPLER AV Peak Velocity 153.0 cm/s AV Peak Gradient 9.4 mmHg AV Mean Velocity 108.0 cm/s AV Mean Gradient 5.0 mmHg AV Velocity Time Integral 26.9 cm LVOT Peak Velocity 88.7 cm/s LVOT Peak Gradient 3.1 mmHg LVOT Mean Velocity 67.9 cm/s LVOT Mean Gradient 2.0 mmHg LVOT Velocity Time Integral 14.3 cm LVOT Stroke Volume 51.9 cm AV Area Cont Eq vti 1.9 cm AV Area Cont Eq pk 2.1 cm Mitral E Point Velocity 70.6 cm/s Mitral A Point Velocity 58.7 cm/s Mitral E to A Ratio 1.2 MV Deceleration Time 214.0 ms TV Peak Velocity 274.0 cm/s TR Peak Velocity 273.7 cm/s TR Peak Gradient 30.0 mmHg Right Atrial Pressure 5.0 mmHg Pulmonary Artery Systolic Pressu 35.0 mmHg Right Ventricular Systolic Press 35.0 mmHg PV Peak Velocity 181.0 cm/s PV Peak Gradient 13.1 mmHg PV Mean Velocity 127.0 cm/s PV Mean Gradient 7.0 mmHg PV Velocity Time Integral 22.6 cm LV E' Lateral Velocity 14.7 cm/s Mitral E to LV E' Lateral Ratio 4.8 LV E' Septal Velocity 7.3 cm/s Mitral E to LV E' Septal Ratio 9.7
== END 2016-07-02 21:00 | disposition short-term general hospital (02) | DRG 441 ==
LOC: ENRESERVTM → ENRESERVDT → ERH 17:33 → ERHI 20:47 → CRI 23:30
PROVIDERS: Internal Medicine; Physician Assistant; ADMIT Student in an Organized Health Care Education/Training Program
PROC: 0W3P8ZZ Control Bleeding in Gastrointestinal Tract, Via Natural or Artificial Opening Endoscopic (ICD-10-PCS; principal; 2016-07-02)
PROC: 30233N1 Transfusion of Nonautologous Red Blood Cells into Peripheral Vein, Percutaneous Approach (ICD-10-PCS; 2016-07-02)
PROC: 30233R1 Transfusion of Nonautologous Platelets into Peripheral Vein, Percutaneous Approach (ICD-10-PCS; 2016-07-02)
PROC: 30233K1 Transfusion of Nonautologous Frozen Plasma into Peripheral Vein, Percutaneous Approach (ICD-10-PCS; 2016-07-02)
DX: K72.00 Acute and subacute hepatic failure without coma (principal); A41.9 Sepsis, unspecified organism; G92 Toxic encephalopathy; I85.11 Secondary esophageal varices with bleeding; R65.10 Systemic inflammatory response syndrome (SIRS) of non-infectious origin without acute organ dysfunction; E87.2 Acidosis; E87.1 Hypo-osmolality and hyponatremia; D62 Acute posthemorrhagic anemia; C22.7 Other specified carcinomas of liver; K74.60 Unspecified cirrhosis of liver; R74.0 Nonspecific elevation of levels of transaminase and lactic acid dehydrogenase [LDH]; B19.20 Unspecified viral hepatitis C without hepatic coma; E86.0 Dehydration
CPT/HCPCS: 84133; 84300; 87184; CCU; 74176; 80307; 81001; 82436; 82570; 86920; 87040; 87086; 87147; 87389; 87449; 93005; 93010; 93306; 94799; 96361; 96365; 96375; 99291; G0480; J0131; J0153; J0696; J0713; J2354; J3370; J3490; J7040; J7042; J7060; P9016; P9017; P9031

== ENCOUNTER 2016-07-23 16:32 | Observation (INO) | payer OTHER ==
[~2016-07-23] VITALS: Ht 177.8 cm; Wt 72.6 kg
[~2016-07-23 16:32] MED LIST: ASHWAGANDHA PO; BROMELAIN PO; CEFTRIAXONE2 G2 IV; CINNAMON500 M1 PO; CURCUMIN1 GM PO; GLUTATHIONE PO; MAGNESIUM500 M2 PO; MILK THISTLE PO; OCTREOTIDE500 MCG/2 IV; PROPOFOL IV; PROTONIX40 M3 IV; SELENIUM200 MCG PO; VANCOMYCIN1 GM/200 M IV; VITAMIN C500 M7 PO; VITAMIN D1000 UNIT PO; [UNRECOGNIZED DRUG - OTHER] PO; [UNRECOGNIZED DRUG - OTHER] PO; [UNRECOGNIZED DRUG - OTHER] PO; [UNRECOGNIZED DRUG - OTHER] PO
--- NOTE | 2016-07-23 16:44 | NUR ---
PT TRIAGE WITH C/O ABDOMINAL DISTENTION FOR 3 DAYS. HX OF LIVER CA. PT DENIES ANY PAIN, DENIES N/V/D, DENIES URINARY S/S. LBM YESTERDAY WNL. DENIES SOB. PT REPORTS MILD DIZZINESS. HYPOTENSIVE IN TRAIGE. AFEBRILE.
--- NOTE | 2016-07-23 17:12 | NUR ---
APPRECIATE TRIAGE NOTE. PT TO ROOM 7. DR. IRVIN TO BEDSIDE FOR EVAL.
[2016-07-23] MEDS ORDERED: OXACILLIN SODIUM2 G2 IV (17:13)
[2016-07-23] MEDS ORDERED: NADOLOL20 M1 PO (17:13)
[2016-07-23] MEDS ORDERED: POLYETHYLENE GL17 GM PO (17:14)
[2016-07-23] MEDS ORDERED: FUROSEMIDE20 M1 PO (17:14)
[2016-07-23] MEDS ORDERED: SPIRONOLACTONE50 M1 PO (17:14)
--- NOTE | 2016-07-23 17:14 | ED GENERAL ADULT ---
History of Present Illness General Chief Complaint: Abdominal Pain/Flank Pain Stated Complaint: ABD PAIN Source: patient, family, old records Exam Limitations: no limitations Vital Signs & Intake/Output Vital Signs & Intake/Output Vital Signs Date Time Temp Pulse Resp B/P Pulse O2 O2 Flow FiO2 Ox Delivery Rate 07/23 2300 98.1 96 20 90/60 90 Room Air 07/23 2143 98.0 72 18 93/52 93 Room Air Room Air 07/23 2025 98.3 76 20 96/56 92 Room Air 07/23 1839 91 07/23 1826 96.3 88 20 103/73 91 Room Air 07/23 1639 98.5 94 18 97/63 91 Room Air ED Intake and Output 07/24 0000 07/23 1200 Intake Total Output Total 300 Balance -300 Output, Urine 300 Patient 160 lb Weight Allergies Coded Allergies: No Known Allergies (07/01/16) Reconcile Medications Cholecalciferol (Vitamin D3) (Vitamin D) 1,000 UNIT TABLET 1 TAB PO DAILY SUPPLEMENT (Reported) Furosemide 20 MG TABLET 1 TAB PO DAILY DIURETIC (Reported) Lactulose (Unknown Strength) SOLUTION (Unknown Dose) PO AD UNKNOWN (Reported) Nadolol 20 MG TABLET 1 TAB PO AD BP (Reported) Oxacillin Sodium 2 GRAM VIAL.PORT 2 GM IV Q4H ANTIBIOTIC (Reported) Polyethylene Glycol 3350 17 GRAM POWD.PACK 1 PAC PO AD GI (Reported) Spironolactone 50 MG TABLET 1 TAB PO DAILY DIURETIC (Reported) Triage Note: PT TRIAGE WITH C/O ABDOMINAL DISTENTION FOR 3 DAYS. HX OF LIVER CA. PT DENIES ANY PAIN, DENIES N/V/D, DENIES URINARY S/S. LBM YESTERDAY WNL. DENIES SOB. PT REPORTS MILD DIZZINESS. HYPOTENSIVE IN TRAIGE. AFEBRILE. Triage Nurses Notes Reviewed? yes HPI: Patient had a recent admission to for liver cancer. Patient had a variceal bleed that required pending. Patient was discharged from here and sent to [facility] for a TIPS procedure. Patient states he never had the procedure but he did require more banding for a continued variceal bleed. Patient spent 13 days in the hospital but then decided he had enough so he left. Patient does not have a dispute resolution analyst to follow up with. Patient states that while he was hospitalized his abdomen became distended. His abdomen remained distended since discharge and he heard that he could have fluid removed here in the emergency room. Patient is on oxacillin via a PICC line for a staph infection in his blood. Patient denies any abdominal pain. Patient denies any shortness of breath or orthopnea. Patient states he occasionally has a cough with yellow sputum but that is not constant. Patient denies any fevers or chills. Patient is thinking about going to [place] for treatment down there. (BRANDEE MARIN,LYNNETTE Bolden) Past History Travel History Traveled to [place] past 21 day No Medical History Any Pertinent Medical History? see below for history Gastrointestinal: ESOPHAGEAL VARICIES Hepatic: hepatitis C, liver cancer? Cancer(s): liver cancer? History of MRSA: No History of VRE: No History of CDIFF: No Surgical History Surgical History: non-contributory Psychosocial History Services at Home None What is your primary language Polish Tobacco Use: Quit >30 days ago ETOH Use: denies use Illicit Drug Use: denies illicit drug use Family History Hx Contributory? No (BRANDEE MARIN,LYNNETTE Bolden) Review of Systems Review of Systems Constitutional: Reports: no symptoms. EENTM: Reports: no symptoms. Respiratory: Reports: see HPI, cough. Cardiovascular: Reports: no symptoms. GI: Reports: see HPI, bloating. Genitourinary: Reports: no symptoms. Musculoskeletal: Reports: no symptoms. Skin: Reports: no symptoms. Neurological/Psychological: Reports: no symptoms. Hematologic/Endocrine: Reports: no symptoms. Immunologic/Allergic: Reports: no symptoms. All Other Systems: Reviewed and Negative (BRANDEE MARIN,LYNNETTE Bolden) Physical Exam Physical Exam General Appearance: well developed/nourished, alert, awake, mild distress Head: atraumatic, normal appearance Eyes: Bilateral: PERRL, EOMI. Ears, Nose, Throat: normal pharynx, normal ENT inspection, hearing grossly normal Neck: normal inspection, supple, full range of motion Respiratory: normal breath sounds, chest non-tender, no respiratory distress, lungs clear Cardiovascular: regular rate/rhythm, normal peripheral pulses Gastrointestinal: normal bowel sounds, non-tender, POSITIVE SHIFTING DULLNESS, NO TENSE ASCITIES Back: normal inspection, normal range of motion Extremities: normal inspection, normal capillary refill, normal range of motion, no edema Neurologic/Psych: no motor/sensory deficits, awake, alert, oriented x 3, normal mood/affect Skin: intact, normal color, warm/dry Lymphatic: no anterior cervical denisse Core Measures ACS in differential dx? No CVA/TIA Diagnosis: No Severe Sepsis Present: No Septic Shock Present: No (BRANDEE MARIN,LYNNETTE Bolden) Progress Differential Diagnoses I considered the following diagnoses in my evaluation of the patient: [ASCITIES] Plan of Care: Orders Procedure Date/time Status Regular Diet 07/24 B Active CBC WITHOUT DIFFERENTIAL 07/24 0600 Active Teach/Educate 07/23 2216 Active CIWA 07/23 2216 Active Precautions 07/24 2215 Complete Pain Treatment and Response 07/24 2215 Active TRC EVALUATION (GEN) 07/23 2204 Active PT Evaluate & Treat 07/23 2204 Active Pathway - chart 07/23 2204 Active House Staff 07/23 2204 Active CASE MANAGEMENT CONSULT 07/23 2204 Active Code Status 07/23 2204 Active Intake & Output 07/23 2104 Active Patient Data 07/23 2050 Active Saline Lock 07/[address] in observation 07/23 2034 Active Misc Message 07/23 2034 Active ED Holding Orders 07/23 2034 Active Vital Signs 07/23 2034 Active Code Status 07/23 2034 Complete PARTIAL THROMBOPLASTIN TIME 07/23 1749 Complete PROTHROMBIN TIME 07/23 1749 Complete AMMONIA 07/23 1713 Complete COMPREHENSIVE METABOLIC PANEL 07/23 1713 Complete CBC WITHOUT DIFFERENTIAL 07/23 1713 Complete VTE Mechanical Prophylaxis 07/23 UNK Active Vital Signs 07/23 UNK Complete Precautions 07/23 UNK Active Hemoccult 07/23 UNK Active Current Medications Sig/Nagi Start time Last Medication Dose Stop Time Status Admin Furosemide 20 MG DAILY 07/24 1000 AC (Lasix) Nadolol 20 MG DAILY 07/24 1000 AC (Corgard) Spironolactone 50 MG DAILY 07/24 1000 AC (Aldactone) Oxacillin Sodium 2,000 MG Q4 07/24 0200 AC (Oxacillin 2000MG Inj) Sodium Chloride 100 ML (Normal Saline 0.9%) Ibuprofen 600 MG Q6P PRN 07/23 2215 AC (Motrin) Laboratory Tests 07/23/16 1816: Anion Gap 9, Estimated GFR > 60, BUN/Creatinine Ratio 17.8, Glucose 78, Calcium 7.7 L, Total Bilirubin 1.5 H, AST 75 H, ALT 43, Alkaline Phosphatase 70, Ammonia 12, Total Protein 6.9, Albumin 2.0 L, Globulin 4.9 H, Albumin/Globulin Ratio 0.4 L, PT 15.7 H, INR 1.50 H, APTT 49 H, CBC w Diff NO MAN DIFF REQ, RBC 3.48 L, MCV 98.8 H, MCH 33.1 H, RDW 23.6 H, MPV 8.8, Gran % 49.9, Lymphocytes % 38.3, Monocytes % 8.0, Eosinophils % 2.5, Basophils % 1.3, Absolute Granulocytes 1.8, Absolute Lymphocytes 1.4, Absolute Monocytes 0.3, Absolute Eosinophils 0.1, Absolute Basophils 0, PUBS MCHC 33.5 07/23/161712: Urine Color Cancelled, Urine Clarity Cancelled, Urine pH Cancelled, Ur Specific Cowen Cancelled, Urine Protein Cancelled, Urine Ketones Cancelled, Urine Nitrite Cancelled, Urine Bilirubin Cancelled, Urine Urobilinogen Cancelled, Ur Leukocyte Esterase Cancelled, Ur Microscopic Cancelled, Urine Hemoglobin Cancelled, Urine Glucose Cancelled Diagnostic Imaging: Viewed by Me: CT Scan. Discussed w/RAD: CT Scan. Radiology Impression: PATIENT: JUAN TAYLOR PRESENT AGE : 61 PATIENT ACCOUNT NO: [id number] : 53 LOCATION: [facility] ORDERING PHYSICIAN: LYNNETTE IRVIN MD SERVICE DATE: 07/23/16 EXAM TYPE: CAT - CT ABD & PELVIS W/O IV CONTRAS EXAMINATION: CT ABDOMEN AND PELVIS WITHOUT CONTRAST CLINICAL INFORMATION: Abdominal distention. Known liver CA. COMPARISON: CT abdomen/pelvis dated 07/01/2016. TECHNIQUE: Multidetector volumetric imaging was performed from the superior aspect of the liver through the pubic symphysis. Sagittal and coronal reformatted images were obtained on the technologist's workstation. DLP: 521.48 mGy-cm. FINDINGS: LUNG BASES: There are bilateral pleural effusions with adjacent atelectasis versus infiltrates, new since the prior examination. PERITONEAL CAVITY: No intra-abdominal free air. Moderate to severe intra-abdominal ascites, significantly increased since the prior examination. LIVER, GALLBLADDER, AND BILIARY TREE: The liver appears small with nodular contour, consistent with cirrhosis. There is a heterogeneous 9.4 x 9.3 x 7.2 cm mass within the superior right hepatic lobe. There are scattered internal calcifications. These findings are similar to the prior examination, and could represent a primary hepatic lesion such as hepatocellular carcinoma. The gallbladder is distended with layering hyperdensity, consistent with gallbladder sludge. PANCREAS: Unremarkable. SPLEEN: Unremarkable. ADRENAL GLANDS: Unremarkable. KIDNEYS AND URETERS: The kidneys are normal in size, shape, and attenuation. No hydronephrosis, hydroureter, or calculi seen. BLADDER: Unremarkable. GASTROINTESTINAL TRACT: No large or small bowel obstruction. The appendix is not identified. ABDOMINAL WALL: No significant hernia is appreciated. LYMPH NODES: Limited evaluation without IV contrast. VASCULAR: Abdominal aorta is nondilated. The IVC is collapsed. PELVIC VISCERA: The prostate and seminal vesicles are unremarkable. OSSEOUS STRUCTURES: Moderate to severe degenerative disc disease is seen throughout the lumbar spine, including multilevel Schmorl's nodes. IMPRESSION: 1. Moderate to severe abdominal ascites, significantly increased since the prior examination. 2. Right hepatic lobe mass, similar to the prior examination. This could represent a primary hepatic lesion such as hepatocellular carcinoma. 3. Layering sludge within the gallbladder. 4. New small bilateral pleural effusions with adjacent atelectasis versus infiltrates. DICTATED BY: FRANCISCO J BARNETT MD DATE/TIME DICTATED:07/23/161848 CONTROL CABINET ASSEMBLER:NEVA DATE/TIME TRANSCRIBED:07/23/161848 CONFIDENTIAL, DO NOT COPY WITHOUT APPROPRIATE AUTHORIZATION. <Electronically signed in Other Vendor System> SIGNED BY: FRANCISCO J BARNETT MD 07/23/161902 Initial ED EKG: none Hand-Off Endorsed To: GÉNESIS PERDUE MD Endorsed Time: 1899 Pending: CT, labs (LYNNETTE IRVIN MD) Differential Diagnoses I considered the following diagnoses in my evaluation of the patient: (GÉNESIS PERDUE MD) Departure Departure Disposition: STILL A PATIENT Condition: Stable Referrals: SUJATHA DELANEY MD (PCP/Family) Departure Forms: Customer Survey General Discharge Information (LYNNETTE IRVIN MD) Departure Clinical Impression Primary Impression: Abdominal distension Secondary Impressions: Ascites, Liver cancer, Thrombocytopenia Observation Note Spoke With: EVELYN SHARIF MDJewel Physician Advisor Notified: LYNNETTE IRVIN MD Place Patient In: Non-ED OBS Care Area Rationale for Observation: My rational for observation is as follows . pt with liver cancer, ascites, and now with new onset thrombocytopenia, at levels dangerous for spontaneous bleeding... especially with recent gi bleed. pt also unable to care for self at home and has no plan for his liver cancer. Pt merits observation for thrombocytopenia evaluation, case management, management of his ascites (which does not merit large volume paracentesis at this point) and heme/onc consult. (NETTE MARIN,GÉNESIS Bill) Critical Care Note Critical Care Note Critical Care Time: non-applicable (BRANDEE MARIN,LYNNETTE Bolden)
[2016-07-23] MEDS ORDERED: LACTULOSE10 GM/153 PO (17:15)
--- NOTE | 2016-07-23 17:32 | NUR ---
PT TO BATHROOM IN W/C. ASSISTED IN BATHROOM BY BROTHER. UNABLE TO PROVIDE URINE SAMPLE AT THIS TIME. RETURNED TO ROOM IN W/C, MST ASSISTING PT TO CHANGE INTO GOWN AND ONTO STRETCHER.
--- NOTE | 2016-07-23 17:39 | NUR ---
PT STATING TO THIS MST THAT HE WANTS TO MAKE IT CLEAR TO EVERYONE THAT HE IS NOT BEING ADMITTED INTO THE HOSPITAL AND WILL GO HOME TONIGHT. PT STATES HE IS ONLY HERE FOR HIS "PROCEDURE".
--- NOTE | 2016-07-23 18:23 | NUR ---
RECORDS MANAGEMENT ASSOCIATE ATTEMPTED TO TAKE PT FOR PROCEDURE. PT AND FRIENDS REFUSING PROCEDURE, ASKING FOR IMMEDIATE BEDSIDE PARACENTESIS. DR IRVIN AT BEDSIDE FOR EXTENDED PERIOD OF TIME DISCUSSING WHAT CAN AND CANNOT BE DONE IN ER AND RISKS OF PARACENTESIS IN AN INAPPROPRIATE ENVIRONMENT OR WITHOUT INDICATION. PT REFUSING PERIPHERAL STICK, BLOOD DRAWN FROM 2ND LUMEN OF PRE HOSP PICC AFTER APPROVAL FROM MD. 1ST LUMEN HAS CONTINUOUS OXACILLIN RUNNING, ALSO OK TO PAUSE FOR DRAW PER MD. BLOOD DRAWN, PICC DRAWS POORLY/SLOWLY. BLOOD SENT. CT NOTIFIED THAT PT IS READY AND AGREEING TO SCAN.
--- NOTE | 2016-07-23 18:25 | NUR ---
02 SATS RA 90-91%, PT IN NO ACUTE DISTRES, REPORTS USES HOME 02 BUT REFUSING AT THIS TIME.
[2016-07-23 18:29] LABS: ABSOLUTE BASOPHIL COUNT 0 /CUMM (0.0-0.2); ABSOLUTE EOSINOPHIL COUNT 0.1 /CUMM (0.0-0.7); ABSOLUTE GRANULOCYTE CT 1.8 /CUMM (1.4-6.5); ABSOLUTE LYMPH COUNT 1.4 /CUMM (1.2-3.4); ABSOLUTE MONOCYTE COUNT 0.3 /CUMM (0.10-0.60); BASOPHIL % 1.3 % (0.0-2.0); EOSINOPHIL % 2.5 % (0-5); GRANULOCYTE % 49.9 % (42.2-75.2); HEMATOCRIT 34.4 % (42-52); MEAN CORPUSCULAR HGB 33.1 PG (27.0-31.0); MEAN CORPUSCULAR HGB CONC 33.5 G/DL (33.0-37.0); MEAN CORPUSCULAR VOLUME 98.8 FL (80.0-94.0); MEAN PLATELET VOLUME 8.8 FL (7.4-10.4); RBC DISTRIBUTION WIDTH 23.6 % (11.5-14.5); RED BLOOD CELL CT 3.48 /CUMM (4.70-6.10); WHITE BLOOD CELL COUNT 3.6 /CUMM (4.8-10.8)
[2016-07-23 18:39] LABS: PT 15.7 SEC (9.4-12.5); PTT 49 SEC (25-37)
[2016-07-23 18:52] LABS: PLATELET COUNT 23 /CUMM (130-400)
--- NOTE | 2016-07-23 18:54 | NUR ---
CRITICAL TEST RESULTS [id number] JUAN TAYLOR TESTS AND RESULTS: PLATELETS 23 Results received and read back by: BENSON BROWN Results received date and time: 07/23/161853 The following provider was notified of the results, and read the results back: DR IRVIN Notified date and time: 07/23/16 at 1856
--- NOTE | 2016-07-23 19:03 | CT SCAN REPORT ---
EXAMINATION: CT ABDOMEN AND PELVIS WITHOUT CONTRAST CLINICAL INFORMATION: Abdominal distention. Known liver CA. COMPARISON: CT abdomen/pelvis dated 07/01/2016. TECHNIQUE: Multidetector volumetric imaging was performed from the superior aspect of the liver through the pubic symphysis. Sagittal and coronal reformatted images were obtained on the technologist's workstation. DLP: 521.48 mGy-cm. FINDINGS: LUNG BASES: There are bilateral pleural effusions with adjacent atelectasis versus infiltrates, new since the prior examination. PERITONEAL CAVITY: No intra-abdominal free air. Moderate to severe intra-abdominal ascites, significantly increased since the prior examination. LIVER, GALLBLADDER, AND BILIARY TREE: The liver appears small with nodular contour, consistent with cirrhosis. There is a heterogeneous 9.4 x 9.3 x 7.2 cm mass within the superior right hepatic lobe. There are scattered internal calcifications. These findings are similar to the prior examination, and could represent a primary hepatic lesion such as hepatocellular carcinoma. The gallbladder is distended with layering hyperdensity, consistent with gallbladder sludge. PANCREAS: Unremarkable. SPLEEN: Unremarkable. ADRENAL GLANDS: Unremarkable. KIDNEYS AND URETERS: The kidneys are normal in size, shape, and attenuation. No hydronephrosis, hydroureter, or calculi seen. BLADDER: Unremarkable. GASTROINTESTINAL TRACT: No large or small bowel obstruction. The appendix is not identified. ABDOMINAL WALL: No significant hernia is appreciated. LYMPH NODES: Limited evaluation without IV contrast. VASCULAR: Abdominal aorta is nondilated. The IVC is collapsed. PELVIC VISCERA: The prostate and seminal vesicles are unremarkable. OSSEOUS STRUCTURES: Moderate to severe degenerative disc disease is seen throughout the lumbar spine, including multilevel Schmorl's nodes. IMPRESSION: 1. Moderate to severe abdominal ascites, significantly increased since the prior examination. 2. Right hepatic lobe mass, similar to the prior examination. This could represent a primary hepatic lesion such as hepatocellular carcinoma. 3. Layering sludge within the gallbladder. 4. New small bilateral pleural effusions with adjacent atelectasis versus infiltrates.
--- NOTE | 2016-07-23 20:02 | NUR ---
DR PERDUE AT BEDSIDE
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
--- NOTE | 2016-07-23 21:10 | NUR ---
HOSPITALIST AT BEDSIDE
--- NOTE | 2016-07-23 21:44 | NUR ---
REPORT GIVEN TO MARYLOU ON 2N. HOUSE STAFF AT BEDSIDE, HOUSE STAFF ASKED FOR ORDER FOR CXR TO CONFIRM PICC PLACEMENT AND AGREED TO PLACE ORDER. MOD ASKING THAT TRANSFER TO FLOOR NOT BE DELAYED FOR CXR, AWARE OF OXACILLIN CURRENTLY INFUSING BY HOME PUMP AND STATING WILL ORDER INTERMITTANT INFUSIONS FOR THE FLOOR.
--- NOTE | 2016-07-23 22:10 | NUR ---
PCXR AT BEDSIDE. TRANSPORT AT BEDSIDE, TRANSFER DELAYED DUE TO CXR.
--- NOTE | 2016-07-23 22:44 | NUR ---
PT ARRIVED TO ROOM AT THIS TIME. ALERT FORGETFUL ABLE TO CORRECTLY ANSWER DATE AND PLACE. DENIES PAIN. ON RA. STATES LAST BM WAS TODAY. DENIES NAUSEA. DENIES VOMITING. STATES HE TAKES IN ONLY A CLEAR LIQUID DIET INSTRUCTED BY A NATURAOPATHIC DR, ON AND OFF FOR 30 YEARS, TAKES IN A VARIETY OF DIFFERENT FOODS "OATMEAL, BUT THATS ABOUT IT FAR HOSPITAL FOOD THAT ILL EAT. ABD SOFTLY DISTENDED, +BS. SKIN INTACT. ALPS APPLIED. BED ALARM IN PLACE. STATES HE FELL 3 WEEKS AGO. ORIENTED TO ROOM AND USE OF CALL BURGOS. WILL MONITOR.
[2016-07-23 23:00] VITALS: BP 90/60
--- NOTE | 2016-07-23 23:00 | RADIOLOGY REPORT ---
EXAMINATION: XR CHEST PORTABLE CLINICAL INFORMATION: PICC line placement. COMPARISON: Multiple priors, most recent chest radiograph dated 07/02/2016. TECHNIQUE: Portable AP view of the chest was obtained. FINDINGS: Interval placement of a left-sided PICC line with its tip terminating over the cavoatrial junction. No pleural effusion or pneumothorax. Elevation of the right hemidiaphragm with right lower lobe atelectasis. No cardiomediastinal silhouette enlargement. No abnormal soft tissue calcification. IMPRESSION: 1. Left-sided PICC catheter with its tip terminating over the cavoatrial junction. 2. Elevation of the right hemidiaphragm with associated right lower lobe atelectasis.
[2016-07-24] VITALS: BP 90/60
[2016-07-24 02:00] VITALS: BP 90/60
--- NOTE | 2016-07-24 03:55 | NUR ---
0130 PT REFUSING 0200 DOSE OF OXYCILLIN. DOES NOT WANT TO BE DISTURBED AND WILL CONTINUE WITH NEXT DOSE AT 0600. MD SEBASTIAN AWARE.
[2016-07-24 04:00] VITALS: BP 90/60
[2016-07-24 06:00] VITALS: BP 90/60
[2016-07-24 06:58] VITALS: BP 92/50
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
[2016-07-24 09:40] LABS: ABSOLUTE BASOPHIL COUNT 0 /CUMM (0.0-0.2); ABSOLUTE EOSINOPHIL COUNT 0.1 /CUMM (0.0-0.7); ABSOLUTE LYMPH COUNT 1.8 /CUMM (1.2-3.4); ABSOLUTE MONOCYTE COUNT 0.6 /CUMM (0.10-0.60); BASOPHIL % 0.4 % (0.0-2.0); EOSINOPHIL % 2.9 % (0-5); HEMATOCRIT 30.9 % (42-52); MEAN CORPUSCULAR HGB 33.6 PG (27.0-31.0); MEAN CORPUSCULAR VOLUME 98.9 FL (80.0-94.0); MEAN PLATELET VOLUME 10.4 FL (7.4-10.4); RBC DISTRIBUTION WIDTH 23.4 % (11.5-14.5); RED BLOOD CELL CT 3.12 /CUMM (4.70-6.10); WHITE BLOOD CELL COUNT 4.5 /CUMM (4.8-10.8)
[2016-07-24 10:41] LABS: GRANULOCYTE % 43.6 % (42.2-75.2); PLATELET COUNT 46 /CUMM (130-400)
--- NOTE | 2016-07-24 11:12 | Patient Discharge Instructions ---
Discharge Instructions General Discharge Information You were seen/treated for: Low platelets Ascities Watch for these problems: sudden swelling of abdomen shortness of breath Special Instructions: Please follow up in one week with your new primary care doctor. Dr. Hernandez Acute Coronary Syndrome Inclusion Criteria At DC or during hospital stay patient has or had the following: ACS DIAGNOSIS No Discharge Core Measures Meds if any: Prescribed or Continued at Discharge Meds if any: NOT Prescribed or Continued at Discharge Congestive Heart Failure Inclusion Criteria At DC or during hospital stay patient has or had the following: CHF DIAGNOSIS No Discharge Core Measures Meds if any: Prescribed or Continued at Discharge Meds if any: NOT Prescribed or Continued at Discharge Cerebrovascular accident Inclusion Criteria At DC or during hospital stay patient has or had the following: CVA/TIA Diagnosis No Discharge Core Measures Meds if any: Prescribed or Continued at Discharge Meds if any: NOT Prescribed or Continued at Discharge Venous thromboembolism Inclusion Criteria VTE Diagnosis No VTE Type NONE VTE Confirmed by (Test) NONE Discharge Core Measures - Per Current guidelines, there needs to be overlap - treatment for the first 5 days of Warfarin therapy. - If discharged on Warfarin prior to 5 days of - overlap therapy, the patient will need to be - assessed for post discharge needs including - *Post discharge parental anticoagulation - *Warfarin and/or parental anticoagulation education - *Follow up date to check INR post discharge At least 5 days overlap therapy as Inpatient No Meds if any: Prescribed or Continued at Discharge Note: Overlap Therapy is Warfarin and Anticoagulant Meds if any: NOT Prescribed or Continued at Discharge
--- NOTE | 2016-07-24 12:03 | NUR ---
PT HAS PREHOSPITAL PICC LINE TO LEFT UPPER ARM. NO RECORDS TO INDICATE THAT PICC LINE WAS PLACED IN HOUSE. PT RECENTLY DISCHARGED FROM [facility], INSERTION DATE OF PICC UNKNOWN. DSG ASSESSED, INTACT BUT NOTED TO NOT HAVE BIOPATCH IN PLACE. DSG FROM 07/21. PT EDUCATED ON USE OF BIOPATCH AND REFUSING TO HAVE DRESSING CHANGED AT THIS TIME. PER PT, HE WILL BE LEAVING TODAY AND WOULD RATHER HAVE THE VISITING NURSES WHO HAVE BEEN TAKING CARE OF THE LINE DO THE DRESSING CHANGES. WILL MONITOR.
[2016-07-24 14:07] VITALS: BP 118/90
--- NOTE | 2016-07-24 15:06 | Cons- Gastroenterology ---
General Information and HPI Consulting Request Date of Consult: 07/24/16 Requested By: LOYDA CASE M.D Reason for Consult: Cirrhosis, ascites, hepatoma. Source of Information: patient, old records Exam Limitations: no limitations History of Present Illness: Mr. Valencia is a 61 year old male with a history of HCV cirrhosis and a hepatoma which he underwent a liver biopsy in [place] that confirmed the diagnosis who presented to yesterday with reports of worsening abdominal distention and some abdominal discomort. He was recently discharged from [facility] after a hospitalization for GI bleeding during which time he underwent esophageal banding. He was initially transferred to [facility] for consideration for TIPS as he had persistent bleeding after an upper endoscopy with banding done here at the end of June. A TIPS procedure was not done, but he did have a repeat endoscopy with further banding per his report. He has noted worsening abdominal distention ever since being discharged for which she was reportedly told to come to the ER for evaluation and treatment. He was discharged on diuretics which he has been taking, but he apparently has not been following a low-sodium diet. He has some abdominal discomfort from the distention, but he is without overt pain and he has not had any vomiting. He denies any fevers or chills. He has not had any hematemesis, melena or brbpr since being discharged from [facility]. In the ER he was hemodynamically stable and afebrile. He was admitted to the medical service and a paracentesis wasn't performed because of thrombocytopenia which is somewhat improved today. Allergies/Medications Allergies: Coded Allergies: No Known Allergies (07/01/16) Home Med List: Cholecalciferol (Vitamin D3) (Vitamin D) 1,000 UNIT TABLET 1 TAB PO DAILY SUPPLEMENT (Reported) Furosemide 20 MG TABLET 1 TAB PO DAILY DIURETIC (Reported) Lactulose (Unknown Strength) SOLUTION (Unknown Dose) PO AD UNKNOWN (Reported) Nadolol 20 MG TABLET 1 TAB PO AD BP (Reported) Oxacillin Sodium 2 GRAM VIAL.PORT 2 GM IV Q4H ANTIBIOTIC (Reported) Polyethylene Glycol 3350 17 GRAM POWD.PACK 1 PAC PO AD GI (Reported) Spironolactone 50 MG TABLET 1 TAB PO DAILY DIURETIC (Reported) Current Medications: Current Medications Sig/Nagi Start time Last Medication Dose Route Stop Time Status Admin Furosemide 20 MG DAILY 07/24 1000 AC 07/24 PO 1000 Ibuprofen 600 MG Q6P PRN 07/23 2215 AC PO Nadolol 20 MG DAILY 07/24 1000 AC 07/24 PO 1000 Oxacillin Sodium 2,000 MG Q4 07/24 0200 07/24 Sodium Chloride 100 ML IV 1401 Patient Medication 1 ED .STK-MED ONE 07/24 1353 NH Teaching ED 07/24 1354 Spironolactone 50 MG DAILY 07/24 1000 AC 07/24 PO 1000 Past History Travel History Traveled to [place] past 21 day No Medical History Blood Transfusion Hx: No Neurological: NONE Cardiovascular: NONE Respiratory: NONE Gastrointestinal: ESOPHAGEAL VARICIES Hepatic: hepatitis C, liver cancer? Renal: NONE Endocrine: NONE Cancer(s): liver cancer? Surgical History Surgical History: non-contributory Psychosocial History Who Do You Live With? Friend Services at Home: None Primary Language: Serbian Smoking Status: Former Smoker ETOH Use: denies use Illicit Drug Use: denies illicit drug use Living Will? no Functional Ability ADLs Independent: dressing, eating, toileting, bathing. Ambulation: independent IADLs Independent: shopping, housework, finances, food prep, telephone, transportation , medication admin. Review of Systems Review of Systems Constitutional: Denies: no symptoms. EENTM: Denies: no symptoms. Cardiovascular: Reports: edema. Respiratory: Reports: cough, sputum production. GI: Reports: see HPI. Genitourinary: Denies: no symptoms. Musculoskeletal: Denies: no symptoms. Skin: Denies: no symptoms. Neurological/Psychological: Denies: no symptoms. Hematologic/Endocrine: Denies: no symptoms. Immunologic/Allergic: Denies: no symptoms. All Other Systems: Reviewed and Negative Exam & Diagnostic Data Vital Signs and I&O Vital Signs Date Time Temp Pulse Resp B/P Pulse O2 O2 Flow FiO2 Ox Delivery Rate 07/24 1407 98.2 100 20 118/90 93 Room Air 07/24 1000 70 98/70 07/24 0958 Room Air 07/24 0658 97.9 126 20 92/50 92 Room Air 07/24 0600 98.1 96 18 90/60 07/24 0400 98.1 96 18 90/60 07/24 0200 98.1 96 18 90/60 07/24 0000 98.1 96 18 90/60 07/23 2300 98.1 96 20 90/60 90 Room Air 04/16 2143 98.0 72 18 93/52 93 Room Air Room Air 07/23 2024 98.3 76 20 96/56 92 Room Air 07/23 1839 91 07/23 1826 96.3 88 20 103/73 91 Room Air 07/23 1639 98.5 94 18 97/63 91 Room Air Intake & Output 07/24 0400 07/23 0400 07/22 0400 Intake Total 270 Output Total 300 300 Balance -30 -300 Intake, IV 150 Intake, Oral 120 Output, Urine 300 300 Patient 160 lb Weight Physical Exam General Appearance: well developed/nourished, no apparent distress Head: atraumatic, normal appearance Eyes: Bilateral: normal appearance. Ears, Nose, Throat: normal pharynx, normal ENT inspection Neck: normal inspection, supple, full range of motion Respiratory: normal breath sounds, chest non-tender, no respiratory distress Gastrointestinal: normal bowel sounds, soft, non-tender, distention Back: normal inspection, normal range of motion Extremities: normal inspection, no edema Neurologic/Psych: no motor/sensory deficits, awake, alert, oriented x 3, no asterixis Skin: intact, normal color Results Pertinent Lab Results: Laboratory Tests 07/24 07/23 0625 1816 Chemistry Sodium (137 - 145 mmol/L) 130 L Potassium (3.5 - 5.1 mmol/L) 4.0 Chloride (98 - 107 mmol/L) 95 L Carbon Dioxide (22 - 30 mmol/L) 26 Anion Gap (5 - 16) 9 BUN (9 - 20 mg/dL) 16 Creatinine (0.7 - 1.2 mg/dL) 0.9 Estimated GFR (>60 ml/min) > 60 BUN/Creatinine Ratio (7 - 25 %) 17.8 Glucose (65 - 99 mg/dL) 78 Calcium (8.4 - 10.2 mg/dL) 7.7 L Total Bilirubin (0.2 - 1.3 mg/dL) 1.5 H AST (17 - 59 U/L) 75 H ALT (21 - 72 U/L) 43 Alkaline Phosphatase (< 127 U/L) 70 Ammonia (9 - 30 umol/L) 12 Total Protein (6.3 - 8.2 g/dL) 6.9 Albumin (3.5 - 5.0 g/dL) 2.0 L Globulin (1.9 - 4.2 gm/dL) 4.9 H Albumin/Globulin Ratio (1.1 - 2.2 %) 0.4 L Coagulation PT (9.4 - 12.5 SEC) 15.7 H INR (0.90 - 1.17) 1.50 H APTT (25 - 37 SEC) 49 H Hematology CBC w Diff NO MAN DIFF REQ NO MAN DIFF REQ WBC (4.8 - 10.8 /CUMM) 4.5 L 3.6 L RBC (4.70 - 6.10 /CUMM) 3.12 L 3.48 L Hgb (14.0 - 18.0 G/DL) 10.5 L 11.5 L Hct (42 - 52 %) 30.9 L 34.4 L MCV (80.0 - 94.0 FL) 98.9 H 98.8 H MCH (27.0 - 31.0 PG) 33.6 H 33.1 H RDW (11.5 - 14.5 %) 23.4 H 23.6 H Plt Count (130 - 400 /CUMM) 46 L 23 *L MPV (7.4 - 10.4 FL) 10.4 8.8 Gran % (42.2 - 75.2 %) 43.6 49.9 Lymphocytes % (20.5 - 51.1 %) 39.5 38.3 Monocytes % (1.7 - 9.3 %) 13.6 H 8.0 Eosinophils % (0 - 5 %) 2.9 2.5 Basophils % (0.0 - 2.0 %) 0.4 1.3 Absolute Granulocytes (1.4 - 6.5 /CUMM) 2.0 1.8 Absolute Lymphocytes (1.2 - 3.4 /CUMM) 1.8 1.4 Absolute Monocytes (0.10 - 0.60 /CUMM) 0.6 0.3 Absolute Eosinophils (0.0 - 0.7 /CUMM) 0.1 0.1 Absolute Basophils (0.0 - 0.2 /CUMM) 0 0 PUBS MCHC (33.0 - 37.0 G/DL) 34.0 33.5 07/23 1713 Urines Urine Color Cancelled Urine Clarity Cancelled Urine pH Cancelled Ur Specific [place] Cancelled Urine Protein Cancelled Urine Ketones Cancelled Urine Nitrite Cancelled Urine Bilirubin Cancelled Urine Urobilinogen Cancelled Ur Leukocyte Esterase Cancelled Ur Microscopic Cancelled Urine Hemoglobin Cancelled Urine Glucose Cancelled Imaging/Other Studies: EXAM TYPE: CAT - CT ABD & PELVIS W/O IV CONTRAS EXAMINATION: CT ABDOMEN AND PELVIS WITHOUT CONTRAST CLINICAL INFORMATION: Abdominal distention. Known liver CA. COMPARISON: CT abdomen/pelvis dated 07/01/2016. TECHNIQUE: Multidetector volumetric imaging was performed from the superior aspect of the liver through the pubic symphysis. Sagittal and coronal reformatted images were obtained on the technologist's workstation. DLP: 521.48 mGy-cm. FINDINGS: LUNG BASES: There are bilateral pleural effusions with adjacent atelectasis versus infiltrates, new since the prior examination. PERITONEAL CAVITY: No intra-abdominal free air. Moderate to severe intra-abdominal ascites, significantly increased since the prior examination. LIVER, GALLBLADDER, AND BILIARY TREE: The liver appears small with nodular contour, consistent with cirrhosis. There is a heterogeneous 9.4 x 9.3 x 7.2 cm mass within the superior right hepatic lobe. There are scattered internal calcifications. These findings are similar to the prior examination, and could represent a primary hepatic lesion such as hepatocellular carcinoma. The gallbladder is distended with layering hyperdensity, consistent with gallbladder sludge. PANCREAS: Unremarkable. SPLEEN: Unremarkable. ADRENAL GLANDS: Unremarkable. KIDNEYS AND URETERS: The kidneys are normal in size, shape, and attenuation. No hydronephrosis, hydroureter, or calculi seen. BLADDER: Unremarkable. GASTROINTESTINAL TRACT: No large or small bowel obstruction. The appendix is not identified. ABDOMINAL WALL: No significant hernia is appreciated. LYMPH NODES: Limited evaluation without IV contrast. VASCULAR: Abdominal aorta is nondilated. The IVC is collapsed. PELVIC VISCERA: The prostate and seminal vesicles are unremarkable. OSSEOUS STRUCTURES: Moderate to severe degenerative disc disease is seen throughout the lumbar spine, including multilevel Schmorl's nodes. IMPRESSION: 1. Moderate to severe abdominal ascites, significantly increased since the prior examination. 2. Right hepatic lobe mass, similar to the prior examination. This could represent a primary hepatic lesion such as hepatocellular carcinoma. 3. Layering sludge within the gallbladder. 4. New small bilateral pleural effusions with adjacent atelectasis versus infiltrates. Assessment/Plan Assessment/Recommendations: Assessment : Mr. Valencia is a 61 year old male with HCV cirrhosis, varices s/p banding and a hepatoma who was admitted for worsening ascites which has not yet been tapped secondary to low platelets on admission which have impoved somewhat from yesterday. He has not had any evidence of further variceal bleeding, but it appears as though he is not being adequetly beta blocked based on his HR and therefore his nadolol dose should be increased if his BP can tolerate it. He has some abdominal distention, but he is without tense ascites on physical exam and I don't necessarily feel a large volume paracentesis is necessary at this time and I feel this can continued to be treated with continued diuretics. Unfortunately, his liver tumors size is above the threshold for transplant (by Winfield criteria > 5cm), but if he is agreeable it may be reasonable to treat it with RFA, etoh injection or hepatic artery ligation in an effort to shrink it and perhaps change this. He may also benefit from sorafenib, but he was reportedly told at [facility] that nothing can be done for this which should be confirmed by obtaining his old medical records which can be done as an outpatient. Recommendations: 1. Put on low sodium diet < 2gm a day 2. Continue diuretics at current dose for now 3. Increase to 40mg of nadolol daily as BP tolerates 4. Get recent records from [facility] hospitalization 5. Check an AFP 6. To consdier an oncology consult for treatment of his hepatoma which can also be pursued as an outpatient. I will continue to follow this patient and make further recommendations based on his clinical course and results of repeat blood work. Problem List: 1. Ascites 2. Thrombocytopenia 3. Liver cancer 4. Elevated LFTs Consult Acknowledgment - Thank you for your consult request.
== END 2016-07-24 15:30 ==
LOC: ENRESERVTM → ENRESERVDT → CANRESERV → ERH 16:32 → 2NA 20:35 → ERHI 20:35 → 2NA 22:19
PROVIDERS: Emergency Medicine; Internal Medicine; ADMIT Student in an Organized Health Care Education/Training Program
DX: D61.818 Other pancytopenia (principal); R18.8 Other ascites; B18.2 Chronic viral hepatitis C; R56.9 Unspecified convulsions; A41.01 Sepsis due to Methicillin susceptible Staphylococcus aureus; C22.0 Liver cell carcinoma
CPT/HCPCS: 1255; 6030; 74176; 96374; 97116-GP; 97161-GP; G0378